=== PATIENT | male | born 1965 | race African-American/Black ===

== ENCOUNTER 2021-09-17 11:30 | Emergency (ER) | payer OTHER ==
[~2021-09-17] VITALS: Ht 185.4 cm; Wt 101.2 kg
[2021-09-17] MEDS ORDERED: AUGMENTIN 875-1 EACH PO (13:52)
[2021-09-17 16:13] VITALS: BP 112/55
== END 2021-09-17 16:14 | disposition home or self-care (01) ==
LOC: ER 11:30
DX: S63.694A Other sprain of right ring finger, initial encounter (principal); Z91.09 Other allergy status, other than to drugs and biological substances; W50.3XXA Accidental bite by another person, initial encounter; Y93.89 Activity, other specified; Y92.89 Other specified places as the place of occurrence of the external cause; Y99.8 Other external cause status